=== PATIENT | female | born 2005 | race Caucasian/White ===

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

== ENCOUNTER → 2024-11-20 | Outpatient (CLI) | payer BC | LOC: LAB 11:15 → LAB SHORT 11:15 | DX: L08.0 Pyoderma (principal) | CPT/HCPCS: 87070; 87077; 87147; 87186; 87205 ==